=== PATIENT | female | born 1985 | race Caucasian/White ===

== ENCOUNTER → 2020-12-19 19:55 | Observation (INO) | END | disposition home or self-care (01) | LOC: 1NENULAB | PROVIDERS: ADMIT Registered Nurse; ATTEND Registered Nurse ==

== ENCOUNTER 2021-01-22 15:26 | Inpatient (IN) ==
[2021-01-22] MEDS ORDERED: Metoclopramide 10 MG/2 ML VIAL IVP PRN (15:44)
[2021-01-22] MEDS ORDERED: Lidocaine 1% 20 ML MDV INFILT PRN (15:44)
[2021-01-22] MEDS ORDERED: Famotidine 20 MG/2 ML VIAL IVP PRN (15:44)
[2021-01-22] MEDS ORDERED: *HR* Nalbuphine 10 MG/ML AMPUL IV PRN (15:44)
[2021-01-22] MEDS ORDERED: Naloxone 0.4 MG/ML INJ IVP PRN (15:44)
[2021-01-22] MEDS ORDERED: Ondansetron 4 MG/2 ML VIAL IVP PRN (15:44)
[2021-01-22] MEDS ORDERED: Ringers Solution, Lactated 1,000 ML IVC SCH (15:45)
[2021-01-22] MEDS ORDERED: Oxytocin 20 units/ LR 1000 mL 20 UNIT/1,000 ML BAG IVC SCH ×2 (15:45→23:30)
[2021-01-22 16:15] LABS: Basophils % 0.3 %; Eosinophils # 0.2 K/mcL (0.0-0.6); Eosinophils % 1.8 %; Hematocrit 37.3 % (35.3-44.9); Hemoglobin 12.4 g/dL (11.5-15.4); Immature Granulocytes % 0.4 % (0-4); Lymphocytes # 1.7 K/mcL (0.6-4.6); Lymphocytes % 17.4 %; Mean Corpuscular HGB Conc 33.2 g/dL (31.6-35.5); Mean Corpuscular Hemoglobin 29.1 pg (28.0-33.3); Mean Corpuscular Volume 87.6 fL (83.0-100.0); Mean Platelet Volume 10.2 fL (9.4-12.4); Monocytes # 0.6 K/mcL (0.0-1.3); Monocytes % 6.4 %; Neutrophils # 7.3 K/mcL (1.6-8.9); Platelet Count 211 K/mcL (140-400); Red Blood Count 4.26 M/mcL (3.82-4.97); Red Cell Distribution Width 12.3 % (11.5-14.5); Segmented Neutrophils % 73.7 %
[2021-01-22 16:25] LABS: Amphetamine Screen,Urine Negative ng/mL (Cutoff=1000); Barbiturate Screen,Urine Negative ng/mL (Cutoff=200); Benzodiazepines Screen,Urine Negative ng/mL (Cutoff=200); Cannabinoid Screen,Urine Negative ng/mL (Cutoff = 50); Cocaine Screen,Urine Negative ng/mL (Cutoff= 300); Opiate Screen,Urine Negative ng/mL (Cutoff=300); Phencyclidine Screen,Urine Negative ng/mL (Cutoff=25)
[2021-01-22] MEDS ORDERED: EPHEDrine 50 MG/ML VIAL IVP PRN (16:28)
[2021-01-22] MEDS ORDERED: *HR* FentaNYL (PF) 100 MCG/2 ML VIAL EP ONE (16:28)
[2021-01-22] MEDS ORDERED: Ropivacaine/PF 0.2% 20 ML VIAL EP ONE (16:28)
[2021-01-22] MEDS ORDERED: Epidural Premix (fent/bupiv) 110 ML EP SCH (16:30)
[2021-01-22] MEDS ORDERED: Ropivacaine/PF 0.2% 20 ML VIAL ONE (16:50)
[2021-01-22] MEDS ORDERED: *HR* FentaNYL (PF) 100 MCG/2 ML VIAL ONE (16:50)
[2021-01-22] MEDS ORDERED: Oxytocin 20 units/ LR 1000 mL 20 UNIT/1,000 ML BAG IVC ONE (23:26)
[2021-01-22] MEDS ORDERED: Acetaminophen 325 MG TABLET PO PRN (23:26)
[2021-01-22] MEDS ORDERED: Lanolin 7 G OINT...G. TP PRN (23:26)
[2021-01-22] MEDS ORDERED: Benzocaine/Menthol 56 GM AEROSOL SPRAY TP PRN (23:26)
[2021-01-23] MEDS: Ibuprofen 600 MG TABLET PO PRN ×2 (06:25→17:08)
[2021-01-23] MEDS ORDERED: Prenatal Vit/FA 1 EACH TABLET PO SCH (09:00)
[2021-01-23 20:38] VITALS: BP 109/82; PULSE 88; TEMP 98.4; O2SAT 98
== END 2021-01-23 23:30 | disposition home or self-care (01) | DRG 807 ==
LOC: 1NENULAB 15:26 → 1NENUOBS 01-23 01:39
PROVIDERS: ADMIT Advanced Practice Midwife; ATTEND Advanced Practice Midwife